=== PATIENT | male | born 1995 | race Hispanic/Latino ===

== ENCOUNTER 2017-09-29 20:29 | Emergency (ER) | payer SELFPAY ==
[2017-09-29] MEDS ORDERED: DEXAMETHASONE SOD PHOSPHATE 10MG/ML 1ML VIAL ONE (20:51)
[2017-09-29] MEDS ORDERED: IBUPROFEN 600 MG TABLET ONE (20:52)
== END 2017-09-29 21:00 | disposition home or self-care (01) ==
LOC: EDH 20:29
DX: J33.9 Nasal polyp, unspecified (principal); J45.909 Unspecified asthma, uncomplicated; Z90.49 Acquired absence of other specified parts of digestive tract
CPT/HCPCS: 96372; 99283; J1100

== ENCOUNTER 2017-11-03 12:16 | Emergency (ER) | payer SELFPAY | END 2017-11-03 13:06 | disposition home or self-care (01) | LOC: EDH 12:16 | DX: B08.4 Enteroviral vesicular stomatitis with exanthem (principal); B00.9 Herpesviral infection, unspecified; J45.909 Unspecified asthma, uncomplicated ==

== ENCOUNTER 2019-06-15 09:41 | Emergency (ER) | payer OTHER ==
[2019-06-15] MEDS ORDERED: IBUPROFEN 400 MG TABLET ONE (09:54)
[2019-06-15] MEDS ORDERED: ONDANSETRON ODT 4 MG TAB ONE (10:04)
== END 2019-06-15 11:15 | disposition home or self-care (01) ==
LOC: EDH 09:41
DX: J10.1 Influenza due to other identified influenza virus with other respiratory manifestations (principal); J45.909 Unspecified asthma, uncomplicated; Z90.49 Acquired absence of other specified parts of digestive tract
CPT/HCPCS: 87804

== ENCOUNTER 2019-10-22 15:56 | Emergency (ER) | payer OTHER ==
[2019-10-22 17:04] LABS: RAPID GROUP A STREP NEGATIVE (NEGATIVE)
== END 2019-10-22 17:16 | disposition home or self-care (01) ==
LOC: EDH 15:56
DX: B34.9 Viral infection, unspecified (principal); J45.901 Unspecified asthma with (acute) exacerbation; Z90.49 Acquired absence of other specified parts of digestive tract
CPT/HCPCS: 87804; 87880

== ENCOUNTER 2022-07-30 21:33 | Emergency (ER) | payer OTHER ==
[~2022-07-30] VITALS: Ht 172.7 cm; Wt 79.4 kg
[2022-07-30 23:04] LABS: BILIRUBIN,URINE NEGATIVE (NEGATIVE); COLOR,URINE YELLOW (YELLOW); GLUCOSE, URINE (UA) NEGATIVE (NEGATIVE); KETONES,URINE NEGATIVE (NEGATIVE); LEUKOCYTE ESTERASE ,URINE NEGATIVE Leu/uL (NEGATIVE); NITRATE,URINE NEGATIVE (NEGATIVE); OCCULT BLOOD,URINE NEGATIVE (NEGATIVE); PROTEIN,URINE NEGATIVE (NEGATIVE); UROBILINOGEN,URINE 0.2 mg/dL (0.2-1.0)
[2022-07-30 23:05] LABS: APPEARANCE,URINE CLOUDY (CLEAR)
[2022-07-30 23:09] LABS: BACTERIA,URINE RARE /HPF (None Seen); MUCUS,URINE RARE LPF (None Seen); RBC,URINE 0-1 /HPF (0-1)
[2022-07-30 23:52] VITALS: BP 133/71
[2022-07-30] MEDS ORDERED: IBUP-2070 PO (23:53)
== END 2022-07-31 00:13 | disposition home or self-care (01) ==
LOC: EDH 21:33
DX: N43.3 Hydrocele, unspecified (principal); Z79.1 Long term (current) use of non-steroidal anti-inflammatories (NSAID)
CPT/HCPCS: 76870; 81001

== ENCOUNTER 2022-10-22 13:13 | Emergency (ER) | payer OTHER ==
[~2022-10-22] VITALS: Ht 172.7 cm; Wt 80.3 kg
[~2022-10-22 13:13] MED LIST: IBUP-2070 PO
[2022-10-22 13:45] LABS: BASOPHILS % (AUTO) 0.7 % (0.0-5.0); EOSINOPHILS % (AUTO) 5.4 % (0.0-8.0); HEMATOCRIT 41.7 % (42-54); LYMPHOCYTES % (AUTO) 22.1 % (21.0-51.0); MEAN CORPUSCULAR HEMOGLOBIN 28.4 pg (27.0-33.0); MEAN CORPUSCULAR HGB CONC 34.5 g/dL (32.0-36.0); MEAN CORPUSCULAR VOLUME 82.2 fL (79-99); MONOCYTES % (AUTO) 7.2 % (3.0-13.0); NEUTROPHILS % (AUTO) 64.3 % (40.0-77.0); PLATELET COUNT (AUTO) 268 K/uL (130-400); RED BLOOD CELL COUNT(AUTO) 5.07 MIL/uL (4.50-6.20); WHITE BLOOD COUNT (AUTO) 7.6 K/uL (4.8-10.8)
[2022-10-22 13:56] LABS: CARBON DIOXIDE 30 mmol/L (21-32); CHLORIDE 102 mmol/L (101-111); GLOMERULAR FILTR. RATE CALC 106 mL/min (>90); GLUCOSE,RANDOM 88 mg/dL (70-105); POTASSIUM 3.6 mmol/L (3.5-5.1); SODIUM SERUM 139 mmol/L (136-145); UREA NITROGEN, BLOOD 13 mg/dL (7-18)
[2022-10-22 14:00] LABS: APPEARANCE,URINE CLEAR (CLEAR); BILIRUBIN,URINE NEGATIVE (NEGATIVE); COLOR,URINE COLORLESS (YELLOW); GLUCOSE, URINE (UA) NEGATIVE (NEGATIVE); KETONES,URINE NEGATIVE (NEGATIVE); LEUKOCYTE ESTERASE ,URINE NEGATIVE Leu/uL (NEGATIVE); NITRATE,URINE NEGATIVE (NEGATIVE); OCCULT BLOOD,URINE NEGATIVE (NEGATIVE); PROTEIN,URINE NEGATIVE (NEGATIVE); UROBILINOGEN,URINE 0.2 mg/dL (0.2-1.0)
[2022-10-22 14:01] LABS: ALANINE AMINOTRANSFERASE 30 U/L (12-78); ALBUMIN 4.3 g/dL (3.5-5.0); ASPARTATE AMINOTRANSFERASE 10 U/L (10-37); TOTAL PROTEIN, SERUM 7.9 g/dL (6.0-8.3)
[2022-10-22 14:04] LABS: LIPASE < 50 U/L (114-286)
[2022-10-22 14:40] LABS: MUCUS,URINE RARE LPF (None Seen); RBC,URINE 0-1 /HPF (0-1); WBC,URINE 0-1 /HPF (0-1)
[2022-10-22] MEDS ORDERED: LACT20PA6 PO (15:11)
[2022-10-22 15:34] VITALS: BP 116/79
== END 2022-10-22 15:35 | disposition home or self-care (01) ==
LOC: EDH 13:13
DX: K59.00 Constipation, unspecified (principal); J45.909 Unspecified asthma, uncomplicated
CPT/HCPCS: 36415; 74018; 80053; 81001; 83690; 85025

== ENCOUNTER 2023-02-08 21:50 | Emergency (ER) | payer OTHER ==
[~2023-02-08] VITALS: Ht 172.7 cm; Wt 78.5 kg
[~2023-02-08 21:50] MED LIST changes: +LACT20PA6 PO
[2023-02-08 22:00] VITALS: BP 142/82; PULSE 94; RESP 20
[2023-02-08] MEDS ORDERED: ONDANSETRON 4MG INJ IVP ONE (23:30)
[2023-02-08] MEDS ORDERED: LACTATED RINGERS 1000ML 1,000 ML IV ONE (23:30)
[2023-02-08] MEDS ORDERED: FAMOTIDINE 20MG TAB PO ONE (23:30)
[2023-02-08 23:32] LABS: BASOPHILS # (AUTO) 0.05 K/uL (0.00-0.20); BASOPHILS % (AUTO) 0.4 % (0.0-5.0); EOSINOPHILS % (AUTO) 0.8 % (0.0-8.0); HEMATOCRIT 41.7 % (42-54); IMMATURE GRANULOCYTE ABSOLUTE 0.06 K/uL (0-1); LYMPHOCYTES # (AUTO) 2.4 K/uL (1.0-4.8); LYMPHOCYTES % (AUTO) 19.2 % (21.0-51.0); MEAN CORPUSCULAR HEMOGLOBIN 28.1 pg (27.0-33.0); MEAN CORPUSCULAR HGB CONC 34.3 g/dL (32.0-36.0); MEAN CORPUSCULAR VOLUME 82.1 fL (79-99); MONOCYTES % (AUTO) 8.3 % (3.0-13.0); NEUTROPHILS # (AUTO) 8.7 K/uL (1.8-7.7); NEUTROPHILS % (AUTO) 70.8 % (40.0-77.0); PLATELET COUNT (AUTO) 295 K/uL (130-400); RED BLOOD CELL COUNT(AUTO) 5.08 MIL/uL (4.50-6.20); RED CELL DISTRIBUTION WIDTH 14.1 % (11.0-15.5); WHITE BLOOD COUNT (AUTO) 12.3 K/uL (4.8-10.8)
[2023-02-08 23:42] LABS: POTASSIUM 3.8 mmol/L (3.5-5.1)
[2023-02-08 23:46] LABS: BILIRUBIN,TOTAL 0.5 mg/dL (0.2-1.0); TOTAL PROTEIN, SERUM 7.9 g/dL (6.0-8.3)
[2023-02-08] MEDS ORDERED: IOHEXOL 350 MG/ML 100ML INFUS..BTL IV ONE (23:55)
[2023-02-09 00:56] LABS: ADD UA MICROSCOPIC NO; APPEARANCE,URINE CLEAR (CLEAR); BILIRUBIN,URINE NEGATIVE (NEGATIVE); COLOR,URINE COLORLESS (YELLOW); GLUCOSE, URINE (UA) NEGATIVE (NEGATIVE); KETONES,URINE NEGATIVE (NEGATIVE); LEUKOCYTE ESTERASE ,URINE NEGATIVE Leu/uL (NEGATIVE); NITRATE,URINE NEGATIVE (NEGATIVE); OCCULT BLOOD,URINE NEGATIVE (NEGATIVE); PH,URINE 7.5 (5.0-8.0); PROTEIN,URINE NEGATIVE (NEGATIVE); UROBILINOGEN,URINE 0.2 mg/dL (0.2-1.0)
[2023-02-09] MEDS ORDERED: POLY17PO4 PO (00:57)
== END 2023-02-09 01:10 | disposition home or self-care (01) ==
LOC: EDH 21:50
DX: K59.00 Constipation, unspecified (principal); Z79.899 Other long term (current) drug therapy; Z98.890 Other specified postprocedural states; Z90.49 Acquired absence of other specified parts of digestive tract
CPT/HCPCS: 99285; 74177; 96374; 96361; 80053; 83690; 85025; 81003; 36415; J7120; J2405; Q9967

== ENCOUNTER 2023-09-22 16:42 | Emergency (ER) | payer OTHER ==
[~2023-09-22 16:42] MED LIST changes: +POLY17PO4 PO
== END 2023-09-22 17:27 | disposition left against medical advice (07) ==
LOC: EDH 16:42
DX: M79.642 Pain in left hand (principal); Z53.21 Procedure and treatment not carried out due to patient leaving prior to being seen by health care provider

== ENCOUNTER 2024-06-13 19:28 | Emergency (ER) | payer SELFPAY ==
[~2024-06-13] VITALS: Ht 172.7 cm; Wt 77.1 kg
[2024-06-13] MEDS: Solu-medROL 125MG VIAL IVP ONE (19:53)
[2024-06-13] MEDS: 0.9%NACL 1000ML 1,000 ML IV ONE (19:53)
[2024-06-13 19:54] LABS: RAPID GROUP A STREP negative (NEGATIVE)
[2024-06-13 19:56] VITALS: PULSE 97; RESP 18
[2024-06-13 19:56] LABS: BASOPHILS # (AUTO) 0.05 K/uL (0.00-0.20); BASOPHILS % (AUTO) 0.8 % (0.0-5.0); EOSINOPHILS # (AUTO) 0.15 K/uL (0.00-0.70); EOSINOPHILS % (AUTO) 2.3 % (0.0-8.0); HEMATOCRIT 43.8 % (42-54); IMMATURE GRANULOCYTE ABSOLUTE 0.02 K/uL (0-1); LYMPHOCYTES % (AUTO) 30.7 % (21.0-51.0); MEAN CORPUSCULAR HEMOGLOBIN 29.4 pg (27.0-33.0); MEAN CORPUSCULAR HGB CONC 35.2 g/dL (32.0-36.0); MEAN CORPUSCULAR VOLUME 83.6 fL (79-99); MONOCYTES # (AUTO) 0.7 K/uL (0.1-1.0); MONOCYTES % (AUTO) 10.1 % (3.0-13.0); NEUTROPHILS # (AUTO) 3.7 K/uL (1.8-7.7); NEUTROPHILS % (AUTO) 55.8 % (40.0-77.0); PLATELET COUNT (AUTO) 253 K/uL (130-400); RED BLOOD CELL COUNT(AUTO) 5.24 MIL/uL (4.50-6.20); RED CELL DISTRIBUTION WIDTH 12.9 % (11.0-15.5); WHITE BLOOD COUNT (AUTO) 6.6 K/uL (4.8-10.8)
[2024-06-13] MEDS: ALBUTEROL 0.083% 2.5 MG/3 ML INH IH ONE (19:56)
--- NOTE | 2024-06-13 20:01 | HMCIMG ---
Exam Type: CHEST 1VW Clinical Information: sob Comparison: None Findings: The lungs are clear of infiltrates. The heart is normal in size. The bony and soft tissue structures of the chest are unremarkable. Impression: Clear lungs.
[2024-06-13 20:04] LABS: COVID19 (SARS ANTIGEN RAPID) PRESUMPTIVE NEGATIVE (NEGATIVE); INFLUENZA TYPE A Negative For Type A (NEGATIVE); INFLUENZA TYPE B Negative For Type B (NEGATIVE)
[2024-06-13 20:10] VITALS: PULSE 94; RESP 18
[2024-06-13 20:10] LABS: POTASSIUM 3.4 mmol/L (3.5-5.1)
[2024-06-13] MEDS: IpraTROPium/alBUTERol SULFATE 3 ML SOLUTION IH ONE ×2 (20:10)
[2024-06-13] MEDS ORDERED: ALBUHFA IH (21:24)
[2024-06-13] MEDS ORDERED: AZIT250T PO (21:24)
[2024-06-13] MEDS ORDERED: METH4TAB3 PO (21:24)
[2024-06-13 21:25] VITALS: BP 148/85; PULSE 85; RESP 18; TEMP 98.3; O2SAT 98
--- NOTE | 2024-06-13 21:26 | ERN ---
ED Note History of Present Illness Stated Complaint: COUGH Chief Complaint: Cough Time Seen by MD: 19:29 Time Seen by Midlevel: 19:29 Dictation: The patient is a 29-year-old male with a history of asthma, appendectomy who presents to the emergency department with complaints of one week of productive cough, nasal congestion, bilateral ear pain. Patient reports occasional shortness of breath. Denies any fevers. Reports his child with similar symptoms and tested positive for RSV. Allergies: Coded Allergies: No Known Drug Allergies (Unverified Allergy, Unknown, 07/30/22) Home Meds Active Scripts Polyethylene Glycol 3350 (Miralax) 17 Gm Powd.pack, 17 GM PO DAILY for constipation, #30 PACKET 2 Refills Prov:NATI HARMAN Sr., MD 02/09/23 Lactulose (Kristalose) 20 Gm Packet, 20 GM PO HS for 7 Days, #7 PKT Prov:ASTRID CARCAMO [employer] 10/22/22 Ibuprofen (Ibuprofen) 600 Mg Tablet, 600 MG PO Q6H PRN for PAIN for 5 Days, #20 TAB Prov:ASTRID CARCAMO [employer] 07/30/22 Past Medical History Past Medical History: Asthma Surgical History: Appendectomy RN Note Reviewed/Agreed w/PFSH: Yes Review of System Dictation Constitutional: Negative for fever,chills, and weight loss Eyes: Negative for injury, pain,redness, and discharge ENT: Negative for injury,pain or swelling positive for nasal congestion, ear pain bilaterally Cardiovascular: Negative for chest pain, palpitations, and edema Respiratory: Positive for shortness of breath, cough, wheezing Abdomen/GI: Negative for abdominal pain, nausea, vomiting, diarrhea, and constipation Back: Negative for injury and pain : Negative for injury, bleeding and discharge MS/Extremity: Negative for injury and deformity Skin: Negative for rash, and discoloration Neuro: Negative for headache, weakness, numbness, tingling, and seizure Psych: Negative for suicide ideation, homicidal ideation, and hallucinations Initial Vital Sign VS Vital Signs Date Time Temp Pulse Resp B/P (MAP) Pulse Ox O2 Delivery O2 Flow Rate FiO2 06/13/24 19:30 98.2 94 18 155/92 96 Room Air 0 06/13/24 19:37 21 Physical Exam Dictation Vital Signs reviewed General Appearance: Alert, oriented x 3, no acute distress, well developed, nourished. Head and Face: non-traumatic. Eyes: PERRL, pink conjunctivas, eyelid no trauma, anterior chamber with arcus senilis. Ears: Pinnas intact and no signs of trauma or erythema ear canals clear and no discharge TM no erythema Nose: No discharge, no bleeding. Oropharynx: Mouth normal, tongue pink. pharynx clear,no erythema, tonsils no exudates, no abscesses noted, mucous membrane moist Neck: Supple, non-tender, no thyromegaly, no masses, no JVD, no bruits Breast:Deferred Chest:No tenderness, no crepitus, no paradoxical movement, no retractions Lungs:Clear, well-ventilated, symmetric, no rales, + wheezing, no rhonchi, no stridor, good breath sounds bilaterally Heart: Regular rate, regular rhythm, no murmur, no gallops Vascular: no peripheral edema, Abdomen: Soft, positive bowel sounds, nondistended, no guarding, nontender, no rebound, no masses no hepatomegaly, no splenomegaly, no Hyde's sign, no hernias. Rectal: Deferred Genital: Deferred Neurological: Normal speech, motor function intact, sensory function intact Musculoskeletal: Neck nontender, full range of motion, back nontender, full range of motion, Extremities: nontender, full range of motion Skin: Color pink, dry, no turgor, no rash, no lacerations, no abrasions, no contusions. Lymphatic: Deferred Results (Laboratory/Radiology) Laboratory/Radiology Laboratory Tests Test 06/13/24 19:34 06/13/24 19:48 Influenza Type A Antigen Negative For Type A Influenza Type B Antigen Negative For Type B SARS-CoV-2 Antigen (Rapid) PRESUMPTIVE NEGATIVE Group A Streptococcus Rapid negative (NEGATIVE) White Blood Count 6.6 K/uL (4.8-10.8) Red Blood Count 5.24 MIL/uL (4.50-6.20) Hemoglobin 15.4 g/dL (14.0-18.0) Hematocrit 43.8 % (42-54) Mean Corpuscular Volume 83.6 fL (79-99) Mean Corpuscular Hemoglobin 29.4 pg (27.0-33.0) Mean Corpuscular Hemoglobin Concent 35.2 g/dL (32.0-36.0) Red Cell Distribution Width 12.9 % (11.0-15.5) Platelet Count 253 K/uL (130-400) Mean Platelet Volume 9.4 fL (7.5-10.5) Immature Granulocyte % (Auto) 0.3 % (0-1) Neutrophils (%) (Auto) 55.8 % (40.0-77.0) Lymphocytes (%) (Auto) 30.7 % (21.0-51.0) Monocytes (%) (Auto) 10.1 % (3.0-13.0) Eosinophils (%) (Auto) 2.3 % (0.0-8.0) Basophils (%) (Auto) 0.8 % (0.0-5.0) Neutrophils # (Auto) 3.7 K/uL (1.8-7.7) Lymphocytes # (Auto) 2.0 K/uL (1.0-4.8) Monocytes # (Auto) 0.7 K/uL (0.1-1.0) Eosinophils # (Auto) 0.15 K/uL (0.00-0.70) Basophils # (Auto) 0.05 K/uL (0.00-0.20) Absolute Immature Granulocyte (auto 0.02 K/uL (0-1) Nucleated Red Blood Cells 0.0 % (0.0-0.19) Sodium Level 141 mmol/L (136-145) Potassium Level 3.4 mmol/L (3.5-5.1) L Chloride Level 103 mmol/L (101-111) Carbon Dioxide Level 30 mmol/L (21-32) Blood Urea Nitrogen 14 mg/dL (7-18) Creatinine 1.0 mg/dL (0.5-1.3) Glomerular Filtration Rate Calc 105 mL/min (>90) Random Glucose 83 mg/dL (70-105) Total Calcium 8.6 mg/dL (8.5-10.1) REASON: sob ORDERING PHYSICIAN: LISSA WALKER PROCEDURE: CXR1VW - CHEST 1VW Exam Type: CHEST 1VW Clinical Information: sob Comparison: None Findings: The lungs are clear of infiltrates. The heart is normal in size. The bony and soft tissue structures of the chest are unremarkable. Impression: Clear lungs. Labs Reviewed?: Yes ED Course ED Course Orders Procedure Category Date Status Time Covid19 (Sars Antigen LAB 12/10/24 Complete Rapid) 19:34 Influenza Type A & B, LAB 06/13/24 Complete Rapid 19:34 Rapid (Group A Strep) LAB 06/13/24 Complete 19:34 Chest 1vw RAD 06/13/24 Resulted 19:38 Cbc With Differential LAB 06/13/24 Complete 19:38 Basic Metabolic Panel LAB 06/13/24 Complete 19:38 Albuterol 0.083% PHA 06/13/24 Complete 2.5mg/3ml (Proventil 20:00 Methylprednisolone PHA 06/13/24 Complete Succ 125mg (Solu-Medr 20:00 0.9%Nacl 1000ml (Ns PHA 06/13/24 Complete 1000ml) 20:00 Ipratropium/Albuterol PHA 06/13/24 Complete Neb (Duoneb) 20:30 Ipratropium/Albuterol PHA 06/13/24 Complete Neb (Duoneb) 20:07 Current Medications Medications (Trade) Dose Ordered Sig/Jaylyn Route PRN Reason Start Time Stop Time Status Last Admin Dose Admin Albuterol (DUOneb) 1 UDVIAL ONCE ONCE IH 06/13/24 20:30 06/13/24 20:31 DC 06/13/24 20:10 Albuterol (DUOneb) 1 udvial STK-MED ONCE IH 06/13/24 20:07 06/13/24 20:07 DC Albuterol Sulfate (Proventil 0.083% 2.5mg/3ml) 2.5MG ONCE ONCE IH 06/13/24 20:00 06/13/24 20:01 DC 06/13/24 19:56 Methylprednisolone Sodium Succinate (Solu-medROL 125MG) 125 mg ONCE ONCE IVP 06/13/24 20:00 06/13/24 20:01 DC 06/13/24 19:53 Sodium Chloride 1,000 ml @ 0 mls/hr ONCE ONCE IV 06/13/24 20:00 06/13/24 20:01 DC 06/13/24 19:53 Vital Signs Date Time Temp Pulse Resp B/P (MAP) Pulse Ox O2 Delivery O2 Flow Rate FiO2 06/13/24 20:10 94 18 06/13/24 19:56 97 18 06/13/24 19:37 98.2 92 16 155/92 96 Room Air* 0 21 12/10/24 19:30 98.2 94 18 155/92 96 Room Air 0 Medical Decision Making MDM The patient is a 29-year-old male with a history of asthma, appendectomy who presents to the emergency department with complaints of one week of productive cough, nasal congestion, bilateral ear pain. Patient reports occasional shortn ess of breath. Denies any fevers. Reports his child with similar symptoms and tested positive for RSV. CBC showed no leukocytosis, no anemia, chemistry showed hypokalemia, normal renal function, serology negative for COVID, RSV, flu, chest x-ray with no acute cardiopulmonary pathology. Patient received nebulized treatments and steroids in ER and improved in pain. Patient continues in no respiratory distress. O2 saturations 97 on room air. Patient will be discharged to follow up with PCP. Differential diagnosis: Pneumonia, upper respiratory infection, bronchitis, asthma exacerbation Need for hospitalization: Patient does not meet criteria for hospitalization. There are no social concerns with this patient. DX & DISP Disposition: Discharge Departure Impression: Primary Impression: URI (upper respiratory infection) Additional Impressions: Wheezing, Asthma exacerbation, Cough Condition: Stable Scripts Albuterol Sulfate (Ventolin Hfa/Proventil Hfa/Proair Hfa) 90 Mcg Puff 1-2 PUFF IH Q4H PRN for SHORTNESS OF BREATH for 5 Days, #1 INH 0 Refills PHARMACY TO DISPENSE 1 INHALER FOR USE Prov: LISSA WALKER [facility] 06/13/24 Azithromycin (Zithromax) 250 Mg Tablet 250 MG PO AD for 5 Days, #6 TAB Take 2 250 mg tablets on day 1, then take 1 250mg tablets daily for 4 days Prov: LISSA WALKER [facility] 06/13/24 Methylprednisolone (Medrol) 4 Mg Tab.ds.pk 4 MG PO AD for 6 Days, #1 PACK Day 1: Take 2 tablets before breakfast,1 tablet after lunch and supper, and 2 tablets at bedtime. Day 2: Take1 tablet before breakfast,1 tablet after lunch,1 tablet after supper, and 2 tablets at bedtime. Day 3: Take 1 tablet before breakfast, 1 tablet after lunch, 1 tablet after supper, and 1 tablet at bedtime. Day 4: Take 1 tablet before breakfast, 1 tablet after lunch, and 1 tablet at bedtime. Day 5: Take1 tablet before breakfast and 1 tablet at bedtime. Day 6: Take 1 tablet before breakfast. Prov: LISSA WALKER 06/13/24 Additional Instructions: Please follow up with your primary doctor in 1-2 days. If symptoms worsen please return to ER. FOLLOW-UP WITH PRIMARY CARE PROVIDER IN 1 TO 2 DAYS. TAKE MEDICATIONS DIRECTED HERE IN THE EMERGENCY ROOM. OKAY TO CONTINUE HOME MEDICATIONS UNLESS OTHERWISE DISCUSSED DURING YOUR VISIT IN THE EMERGENCY ROOM TODAY. RETURN TO YOUR NEAREST EMERGENCY ROOM IF SYMPTOMS WORSEN OR IF THERE IS NO IMPROVEMENT. CALL 911 IF YOU NEED IMMEDIATE ASSISTANCE. TAKE TYLENOL OR MOTRIN [id number] NEEDED AND IF NO CONTRAINDICATIONS ARE PRESENT. INCREASE ORAL HYDRATION. A WOUND CULTURE OR URINE CULTURE WAS ORDERED HERE IN THE EMERGENCY ROOM DEPARTMENT PLEASE FOLLOW-UP WITH PRIMARY CARE PROVIDER AND ADVISE THEM TO GET REPEAT PORTS FROM OUR FACILITY. IF YOU HAD ANY RADHA WRAP/SPLINTS THAT WERE APPLIED HERE, PLEASE DO NOT REMOVE THEM UNTIL YOU SEE YOUR PRIMARY CARE OR SPECIALTY. Referrals: SELF,REFERRAL (PCP) Time of Disposition: 21:24 I have reviewed the case, and I agree with, Diagnosis and Plan LISSA WALKER Jun 13, 2024 21:25
--- NOTE | 2024-06-13 21:47 | NUR ---
DC DELAY DUE TO REGISTRATION
== END 2024-06-13 21:32 | disposition home or self-care (01) ==
LOC: EDH 19:28
DX: J06.9 Acute upper respiratory infection, unspecified (principal); J45.901 Unspecified asthma with (acute) exacerbation; R05.9 Cough, unspecified; Z90.49 Acquired absence of other specified parts of digestive tract; Z20.822 Contact with and (suspected) exposure to COVID-19
CPT/HCPCS: 99284; 96374; 71045; 87426; 80048; 85025; 87880; 87804 ×2; 36415; 94640 ×2; J7030; J2919